=== PATIENT | female | born 1990 | race Caucasian/White ===

== ENCOUNTER 2016-08-09 19:02 | Emergency (ER) | payer OTHER ==
[2016-08-09] MEDS ORDERED: SODIUM CHLORIDE 0.9% 1,000 ML IV ONE (20:35)
[2016-08-09] MEDS ORDERED: ONDANSETRON 4 MG/2 ML VIAL IVP STA (21:20)
[2016-08-09] MEDS ORDERED: ONDANSETRON 4 MG/2 ML VIAL ONE (21:20)
== END 2016-08-09 22:05 | disposition home or self-care (01) ==
DX: K52.9 Noninfective gastroenteritis and colitis, unspecified (principal); M32.9 Systemic lupus erythematosus, unspecified

== ENCOUNTER 2016-10-19 07:07 | Emergency (ER) | payer OTHER | END 2016-10-19 09:50 | disposition home or self-care (01) | DX: R11.0 Nausea (principal); R42 Dizziness and giddiness; T58.8X1A Toxic effect of carbon monoxide from other source, accidental (unintentional), initial encounter; Y92.009 Unspecified place in unspecified non-institutional (private) residence as the place of occurrence of the external cause; M32.9 Systemic lupus erythematosus, unspecified ==

== ENCOUNTER 2017-10-20 21:26 | Emergency (ER) | payer OTHER ==
[2017-10-20] MEDS ORDERED: cephALEXin 250 MG CAPSULE PO STA (21:37)
[2017-10-20 21:38] VITALS: BP 127/79
--- NOTE | 2017-10-20 21:38 | ED Physician Documentation ---
History of Present Illness - Stated complaint Stated Complaint: POSS MASTITIS - History obtained from History obtained from: Patient - History of Present Illness Timing: How many days ago (10) Pain level max: 5 Pain level now: 4 - Additonal information Additional information: Patient is a 26-year-old female, has a 2-month-old at home. She states approximately 10 days ago the was "dislodged" from her left breast causing an abrasion. States in the past 2-3 days has had increasing pain. Tried warm compresses without relief. No fevers. Now has noted redness of the left breast. Pain is worse with breast-feeding and palpation Review of Systems Constitutional: denies: Fever, Chills Ears: denies: Ear pain Nose: denies: Rhinorrhea / runny nose, Congestion Throat: denies: Sore throat Respiratory: denies: Cough GI: denies: Vomiting : denies: Now EGA Skin: denies: Rash Musculoskeletal: denies: Neck pain, Back pain PD PAST MEDICAL HISTORY - Past Medical History Cardiovascular: Arrhythmia Respiratory: Asthma Endocrine/Autoimmune: Systemic lupus erythematosus - Past Surgical History Past Surgical History: No HEENT: Myringotomy (tubes), Tonsil/Adenoidectomy - Present Medications Home Medications: Ambulatory Orders Medication Instructions Recorded Confirmed Cephalexin [Keflex] 500 mg PO Q6H #40 capsule 10/20/17 - Allergies Allergies/Adverse Reactions: Allergies Allergy/AdvReac Type Severity Reaction Status Date / Time latex Allergy Intermediate Itching Verified 06/05/15 23:56 - Social History Does the pt smoke?: No Smoking Status: Never smoker Does the pt drink ETOH?: No Does the pt have substance abuse?: No - Immunizations Immunizations are current?: Yes - POLST Patient has POLST: No PD ED PE NORMAL - Vitals Vital signs reviewed: Yes - General General: Alert and oriented X 3, No acute distress - HEENT HEENT: Moist mucous membranes - Neck Neck: Supple, no meningeal sign - Cardiac Cardiac: RRR - Respiratory Respiratory: No respiratory distress, Clear bilaterally - Derm Derm: Warm and dry, Other (Left breast is mildly erythematous, especially on the inferior aspect of the breast. No palpable masses or abscesses. No unusual drainage. Exam was chaperoned by WILL Wahl) - Neuro Neuro: Alert and oriented X 3 Results - Vitals Vitals: Vital Signs - 24 hr 10/20/17 21:36 Temperature 36.3 C L Heart Rate 75 Respiratory 16 Rate Blood Pressure 127/79 O2 Saturation 99 Oxygen O2 Source Room air PD MEDICAL DECISION MAKING - ED course Complexity details: considered differential, d/w patient ED course: Patient appears to have a mastitis of the left breast. The exam of the right breast was normal. Will place on Keflex. We will have her follow-up with her doctor for further evaluation and care. Will continue breast-feeding. Patient counseled regarding signs and symptoms for which I believe and urgent re- evaluation would be necessary. Patient with good understanding of and agreement to plan and is comfortable going home at this time This document was made in part using voice recognition software. While efforts are made to proofread this document, sound alike and grammatical errors may occur. Departure - Departure Disposition: 01 Home, Self Care Clinical Impression: Mastitis Condition: Good Instructions: ED Breast Infec Follow-Up: TIANNA MENDEZ [Primary Care Provider] - Within 1 week (if not better) Prescriptions: Cephalexin [Keflex] 500 mg PO Q6H #40 capsule Comments: Take all antibiotics until gone. Return if you worsen. Discharge Date/Time: 10/20/17 21:54
== END 2017-10-20 21:54 | disposition home or self-care (01) ==
LOC: ED 21:26
DX: N61.0 Mastitis without abscess (principal); M32.9 Systemic lupus erythematosus, unspecified
CPT/HCPCS: 99283; A9270

== ENCOUNTER 2018-11-08 20:33 | Emergency (ER) | payer OTHER ==
--- NOTE | 2018-11-08 21:08 | ED Physician Documentation ---
PD HPI FEMALE - Stated complaint Stated Complaint: FEMALE - Chief complaint Chief Complaint: Abd Pain - History obtained from History obtained from: Patient - History of Present Illness Timing - onset: Today (this morning) Timing - duration: Days (1/2) Timing - details: Gradual onset, Still present, Waxing and waning Associated symptoms: Abdominal pain (left low abd), Pelvic pain, Vaginal discharge (mild thin discharge with some odor for few weeks.). No: Fever, Genital sore/lesion, Dysuria Contributing factors: Sexually active. No: , Exposed to STD Similar symptoms before: No diagnosis (had similar symptoms last month with mid- cycle and hurt for 1-2 days. Followed up with PMD and had outpt U/S which was normal. Presumption was perhaps ruptured cyst.) Review of Systems Constitutional: denies: Fever Nose: denies: Rhinorrhea / runny nose, Congestion Throat: denies: Sore throat Respiratory: denies: Cough GI: reports: Diarrhea (loose stool x 2-3 today). denies: Nausea, Vomiting : reports: Discharge. denies: Dysuria, Frequency, Vaginal bleeding Neurologic: denies: Near syncope PD PAST MEDICAL HISTORY - Past Medical History Cardiovascular: Arrhythmia Respiratory: Asthma Endocrine/Autoimmune: Systemic lupus erythematosus - Past Surgical History Past Surgical History: No HEENT: Myringotomy (tubes), Tonsil/Adenoidectomy - Present Medications Home Medications: Ambulatory Orders Medication Instructions Recorded Confirmed Etanercept [Enbrel] 25 mg IM 11/08/18 Metronidazole [Flagyl] 500 mg PO BID #20 tablet 11/08/18 Naproxen 375 mg PO BID #20 tablet 11/08/18 Ondansetron Odt [Zofran] 4 mg TL Q6H PRN #10 tablet 11/08/18 - Allergies Allergies/Adverse Reactions: Allergies Allergy/AdvReac Type Severity Reaction Status Date / Time latex Allergy Intermediate Itching Verified 11/08/18 20:56 - Social History Does the pt smoke?: No Smoking Status: Never smoker Does the pt drink ETOH?: No Does the pt have substance abuse?: No - Immunizations Immunizations are current?: Yes - POLST Patient has POLST: No PD ED PE NORMAL - Vitals Vital signs reviewed: Yes - General General: Alert and oriented X 3, No acute distress, Well developed/nourished - Abdomen Abdomen: Normal bowel sounds, Soft, Non distended, No organomegaly, Other (Some tenderness the left sided abdomen and left lower quadrant without any guarding or percussion tenderness.) - Female Female : Consumer Safety Officer present, Other (The external genitalia is normal. The vaginal vault shows a thin mucousy discharge with some odor to it and some mild cervicitis. There is no significant cervical motion tenderness.) - Rectal Rectal: Deferred - Back Back: No CVA TTP - Derm Derm: Normal color, Warm and dry Results - Vitals Vitals: Vital Signs - 24 hr 11/08/18 11/08/18 20:51 22:12 Temperature 36.8 C 36.5 C Heart Rate 97 93 Respiratory 16 16 Rate Blood Pressure 140/97 H 142/80 H O2 Saturation 99 100 Oxygen O2 Source Room air - Labs Labs: Microbiology 11/08/18 21:52 Wet Prep - Final Vaginal Laboratory Tests 11/08/18 11/08/18 21:07 21:07 Urine Color YELLOW Urine Clarity CLEAR Urine pH 6.0 Ur Specific [place] 1.025 1.025 Urine Protein NEGATIVE Urine Glucose (UA) NEGATIVE Urine Ketones NEGATIVE Urine Occult Blood NEGATIVE Urine Nitrite NEGATIVE Urine Bilirubin NEGATIVE Urine Urobilinogen 0.2 (NORMAL) Ur Leukocyte Esterase NEGATIVE Ur Microscopic Review NOT INDICATED Urine Culture Comments NOT INDICATED Urine HCG, Qual NEGATIVE PD MEDICAL DECISION MAKING - ED course Complexity details: considered differential (She had some loose to watery stool today a few times and so her left abdominal pain could be intestinal cramping. However she does have a discharge and on exam it appears consistent with bacterial vaginitis. She had had an outpatient ultrasound just to 3 weeks ago that was normal. It certainly is possible she may have developed a cyst in the meantime but I think would be less likely. At this point would treat for the bacterial vaginitis. If it were a diarrheal type cramp, that should improve just with time.), d/w patient Departure - Departure Disposition: 01 Home, Self Care Clinical Impression: Left sided abdominal pain, Bacterial vaginitis Condition: Stable Record reviewed to determine appropriate education?: Yes Instructions: ED Abdominal Pain Unkn Cause, ED Vaginosis Bacterial Follow-Up: TIANNA MENDEZ [Primary Care Provider] - Prescriptions: Metronidazole [Flagyl] 500 mg PO BID #20 tablet Naproxen 375 mg PO BID #20 tablet Ondansetron Odt [Zofran] 4 mg TL Q6H PRN #10 tablet PRN Reason: Nausea / Vomiting Comments: Your urine test appears normal. The vaginal exam does look consistent with a bacterial vaginitis. Cultures from the vaginal area will result in 2 to 3 days to look for other types of infections. We will call you if they are positive. Meanwhile we will treat with metronidazole twice daily for a week for the bacterial vaginosis. The vaginal infection may be causing your abdominal cramping or it may be related to midcycle pains from follicular fluid or such. This should be temporary for a day or 2. Your pain could also be intestinal associated with the loose stool in the dietary or such. This should also improve with some anti-inflammatories and time. At this point I think we can go with some frequent fluids and stay well-hydrated and use some anti-inflammatories such as naproxen twice daily for the next several days to week. Add ondansetron if needed for nausea. Add the hydrocodone tablets every 6 hours if needed for pain. Recheck if not improved over the next couple of days. Discharge Date/Time: 11/08/18 22:16
[2018-11-08 21:14] LABS: BILIRUBIN,URINE NEGATIVE (NEGATIVE); GLUCOSE, URINE (UA) NEGATIVE (NEGATIVE); KETONES,URINE (UA) NEGATIVE (NEGATIVE); LEUKOCYTE ESTERASE, URINE NEGATIVE (NEGATIVE); NITRITE,URINE NEGATIVE (NEGATIVE); OCCULT BLOOD,URINE NEGATIVE (NEGATIVE); PROTEIN,URINE NEGATIVE (NEGATIVE); UROBILINOGEN,URINE 0.2 (NORMAL) E.U./dL (NORMAL)
[2018-11-08 21:15] LABS: CLARITY,URINE CLEAR (CLEAR)
[2018-11-08 21:17] LABS: HCG UR QUAL NEGATIVE
[2018-11-08] MEDS ORDERED: ACETAMINOPHEN 325 MG TABLET PO STA (21:27)
[2018-11-08] MEDS ORDERED: NAPROXEN 250 MG TABLET PO STA (21:27)
[2018-11-08] MEDS ORDERED: ONDANSETRON ODT 4 MG TABLET TL STA (21:27)
[2018-11-08] MEDS ORDERED: ONDANSETRON ODT 4 MG Prepack 2 TL PRN (22:00)
[2018-11-08] MEDS ORDERED: metroNIDAZOLE 250 MG TABLET PO STA (22:00)
[2018-11-08] MEDS ORDERED: HYDROcod/ACET 5/325 Prepack 4 PO STA (22:00)
[2018-11-08 22:13] VITALS: BP 142/80
[2018-11-09 12:24] LABS: TRICHOMONAS VAGINALIS DNA NEGATIVE (NEGATIVE)
== END 2018-11-08 22:16 | disposition home or self-care (01) ==
LOC: ED 20:33
DX: N76.0 Acute vaginitis (principal); B96.89 Other specified bacterial agents as the cause of diseases classified elsewhere; N72 Inflammatory disease of cervix uteri; R10.32 Left lower quadrant pain; R19.7 Diarrhea, unspecified; M32.9 Systemic lupus erythematosus, unspecified
CPT/HCPCS: 81003; 81025; 87210; 87491; 87591; 87661; 99283; A9270; Q0162; 80053; 81001; 83690; 85025; 87086

== ENCOUNTER 2021-08-06 11:09 | Outpatient (CLI) | payer OTHER ==
[2021-08-06 17:11] LABS: BILIRUBIN,URINE NEGATIVE (NEGATIVE); GLUCOSE, URINE (UA) NEGATIVE (NEGATIVE); KETONES,URINE (UA) NEGATIVE (NEGATIVE); LEUKOCYTE ESTERASE, URINE NEGATIVE (NEGATIVE); NITRITE,URINE NEGATIVE (NEGATIVE); OCCULT BLOOD,URINE NEGATIVE (NEGATIVE); PROTEIN,URINE NEGATIVE (NEGATIVE); UROBILINOGEN,URINE 0.2 (NORMAL) E.U./dL (NORMAL)
[2021-08-06 17:12] LABS: CLARITY,URINE CLEAR (CLEAR)
[2021-08-06 19:59] LABS: BACTERIA,URINE Rare /HPF (None Seen); RBC,URINE None Seen /HPF (0-5); SQUAMOUS EPITHELIAL CELL,UR RARE Squamous (<= Few); WBC,URINE 0-3 /HPF (0-5)
[2021-08-07 00:57] LABS: CHLAMYDIA TRACHOMATIS DNA NEGATIVE (NEGATIVE); NEISSERIA GONORRHOEAE DNA NEGATIVE (NEGATIVE); TRICHOMONAS VAGINALIS DNA NEGATIVE (NEGATIVE)
[2021-08-07 02:59] LABS: BACTERIAL VAGINOSIS DNA NEGATIVE (NEGATIVE); CANDIDA GLABRATA DNA NEGATIVE (NEGATIVE); CANDIDA GROUP DNA POSITIVE (NEGATIVE); CANDIDA KRUSEI DNA NEGATIVE (NEGATIVE); TRICHOMONAS VAGINALIS DNA NEGATIVE (NEGATIVE)
== END 2021-08-06 23:59 | disposition home or self-care (01) ==
LOC: LAB 11:09
PROVIDERS: ATTEND Obstetrics & Gynecology
DX: R30.0 Dysuria (principal); Z11.3 Encounter for screening for infections with a predominantly sexual mode of transmission; N76.0 Acute vaginitis
CPT/HCPCS: 81001; 87086; 87491; 87591; 87661; 87801

== ENCOUNTER 2022-06-27 10:09 | Outpatient (CLI) | payer OTHER | END 2022-06-27 10:10 | disposition home or self-care (01) | LOC: LAB 10:09 | PROVIDERS: ATTEND Obstetrics & Gynecology | DX: Z01.812 Encounter for preprocedural laboratory examination (principal); N81.6 Rectocele; N81.10 Cystocele, unspecified | CPT/HCPCS: 36415; 86850; 86900; 86901 ==

== ENCOUNTER 2022-06-28 06:25 | Day surgery (SDC) | payer OTHER ==
[2022-06-28] MEDS ORDERED: LACTATED RINGERS 1,000 ML IV ONE (06:27)
--- NOTE | 2022-06-28 06:54 | ANESTHESIA ---
Pre-Anesthesia VS, & Labs - Diagnosis rectocele, cystocele - Procedure anterior/posterior repair, cystoscopy Vital Signs: Temp Pulse Resp BP Pulse Ox O2 Flow Rate 36.7 C 87 16 123/80 100 06/28/22 06:35 06/28/22 06:35 06/28/22 06:35 06/28/22 06:35 06/28/22 06:35 Height: 5 ft 7 in Weight (kg): 94 kg Body Mass Index: 32.4 BMI Classification: Obese - NPO >8 hours - Is Patient ?: Waiver signed - Lab Results Lab results reviewed: Yes Home Medications and Allergies Home Medications: Ambulatory Orders Acetaminophen [Tylenol] 650 mg PO Q6H PRN 06/22/22 Fexofenadine [Adrienne] 60 mg PO DAILY 06/22/22 Levothyroxine Sodium [Levothyroxine] 50 mcg PO DAILY 06/22/22 Liothyronine [Cytomel] 5 mcg PO QDAC 06/22/22 Rimegepant Sulfate [Nurtec Odt] 75 mg PO PRN PRN 06/22/22 SUMAtriptan [Imitrex] 25 mg PO ONCE PRN 06/22/22 Docusate Sodium 100Mg Capsule [Colace 100Mg Capsule] 100 mg PO DAILY PRN 06/28/22 Acetaminophen [Tylenol] 650 mg PO Q6H PRN 06/22/22 Fexofenadine [Adrienne] 60 mg PO DAILY 06/22/22 Levothyroxine Sodium [Levothyroxine] 50 mcg PO DAILY 06/22/22 Liothyronine [Cytomel] 5 mcg PO QDAC 06/22/22 Rimegepant Sulfate [Nurtec Odt] 75 mg PO PRN PRN 06/22/22 SUMAtriptan [Imitrex] 25 mg PO ONCE PRN 06/22/22 Docusate Sodium 100Mg Capsule [Colace 100Mg Capsule] 100 mg PO DAILY PRN 06/28/22 Allergies/Adverse Reactions: Allergies Allergy/AdvReac Type Severity Reaction Status Date / Time latex Allergy Intermediate Anaphylaxis Verified 06/22/22 15:42 adhesive tape Allergy Rash Verified 06/22/22 15:54 Anes History & Medical History - Anesthetic History Anesthesia Complications: reports: No previous complications, Slow wake-up Family history of Anesthesia Complications: Denies Family history of Malignant Hyperthermia: Denies - Medical History Cardiovascular: reports: Hypertension Pulmonary: reports: Asthma Gastrointestinal: reports: Other Urinary: reports: None Musculoskeletal: reports: Fibromyalgia, Other Endocrine/Autoimmune: reports: HyPOthyroidism, Systemic lupus erythematosus Skin: reports: Eczema Smoking Status: Never smoker Psychosocial: reports: Cannabis History of Cancer?: No - Surgical History General: reports: Cholecystectomy Eyes Ears Nose Throat (EENT): reports: Myringotomy (tubes), Tonsil/Adenoidectomy Exam General: Alert, Oriented x3, Cooperative Dental: Other (temporary cap on #8) Mouth Openin Fingerbreadth Neck Mobility: Normal Mallampati classification: II Thyromental Distance: 4-6 cm Respiratory: Lungs clear, Normal breath sounds, No respiratory distress Cardiovascular: Regular rate Neurological: Normal speech Mental/Cognitive Status: Alert/Oriented X3, Normal for patient Cognitive Status: Within normal limits Plan Anesthesia Type: General Consent for Procedure(s) Verified and Reviewed: Yes Code Status: Attempt Resuscitation ASA classification: 2-Mild systemic disease Is this case an emergency?: No
[2022-06-28] MEDS ORDERED: fentaNYL 100 MCG/2 ML VIAL ONE ×2 (07:02→09:18)
[2022-06-28] MEDS ORDERED: MIDAZOLAM 2 MG/2 ML VIAL ONE (07:02)
[2022-06-28] MEDS ORDERED: PROPOFOL 200 MG/20 ML VIAL IVP ONE (07:03)
[2022-06-28] MEDS ORDERED: LIDOCAINE-PF 2% 10 ML AMP SUBQ ONE (07:03)
[2022-06-28] MEDS ORDERED: ROCURONIUM 50 MG/5 ML VIAL ONE (07:07)
[2022-06-28] MEDS ORDERED: BUPIVACAINE 0.5% PF 30 ML VIAL ONE (07:11)
[2022-06-28] MEDS ORDERED: LIDOCAINE MPF 2%-EPI 1:200000 20 ML VIAL ONE (07:11)
[2022-06-28] MEDS ORDERED: ESTROGENS, CONJUGATED CREAM 30 GM TUBE ONE (07:12)
[2022-06-28] MEDS ORDERED: ONDANSETRON 4 MG/2 ML VIAL IVP PRN ×2 (07:24→11:38)
[2022-06-28] MEDS ORDERED: METOCLOPRAMIDE 10 MG/2 ML VIAL IVP PRN (07:24)
[2022-06-28] MEDS ORDERED: ATROPINE ABBOJECT 1 MG/10 ML SYRINGE IVP PRN (07:24)
[2022-06-28] MEDS ORDERED: fentaNYL 100 MCG/2 ML VIAL IVP PRN (07:24)
[2022-06-28] MEDS ORDERED: NALOXONE 0.4 MG/ML VIAL IVP PRN (07:24)
[2022-06-28] MEDS ORDERED: MORPHINE 2 MG/ML CARPUJECT IVP PRN (07:24)
[2022-06-28] MEDS ORDERED: ePHEDrine 50 MG/ML VIAL IVP PRN (07:24)
[2022-06-28] MEDS ORDERED: ONDANSETRON 4 MG/2 ML VIAL ONE ×2 (07:48→11:26)
[2022-06-28] MEDS ORDERED: DEXAMETHASONE 4 MG/ML VIAL ONE (07:48)
[2022-06-28] MEDS ORDERED: LACTATED RINGERS 1,000 ML IV SCH (08:00)
[2022-06-28] MEDS ORDERED: VASOPRESSIN 20 UNIT/ML VIAL ONE (08:16)
[2022-06-28] MEDS ORDERED: BUPIVACAINE 0.5% PF 30 ML VIAL SUBQ ONE (08:25)
[2022-06-28] MEDS ORDERED: VASOPRESSIN 20 UNIT/ML VIAL IVP ONE ×2 (08:25)
[2022-06-28] MEDS ORDERED: LIDOCAINE MPF 2%-EPI 1:200000 20 ML VIAL SUBQ ONE (08:25)
[2022-06-28] MEDS ORDERED: ACETAMINOPHEN 1,000 MG/100 ML 1,000 MG/100 ML BAG IV ONE (08:38)
[2022-06-28] MEDS ORDERED: KETOROLAC 30 MG/ML VIAL ONE (08:46)
[2022-06-28] MEDS ORDERED: MANNITOL 20% 500 ML IV ONE (08:56)
[2022-06-28] MEDS ORDERED: GLYCOPYRROLATE 1 MG/5 ML VIAL ONE (09:19)
[2022-06-28] MEDS ORDERED: NEOSTIGMINE 1 MG/1 ML 10 ML MDV ONE (09:19)
[2022-06-28] MEDS ORDERED: TRANEXAMIC ACID 1,000 MG/10 ML VIAL ONE (09:54)
[2022-06-28] MEDS ORDERED: HYDROmorphone 1 MG/ML CARPUJECT ONE ×2 (10:06→11:11)
[2022-06-28] MEDS ORDERED: LACTATED RINGERS 275 ML IV ONE (10:59)
[2022-06-28] MEDS ORDERED: ACETAMINOPHEN 500 MG TABLET PO PRN (11:09)
[2022-06-28] MEDS: HYDROmorphone 0.5 MG/0.5 ML SYRINGE IVP PRN ×4 (11:23→11:47)
--- NOTE | 2022-06-28 11:30 | OPERATIVE REPORT ---
Operative Report - General Procedure Date: 06/28/22 Planned Procedure: Anterior and posterior colporrhaphy with possible perineorrhaphy with cystoscopy Pre-Op Diagnosis: Female rectocele and cystocele Procedure Performed: Anterior and posterior colporrhaphy with perineorrhaphy with cystoscopy. Post Op Diagnosis: Female rectocele and cystocele, status post anterior posterior colporrhaphy - Procedure Note Primary Surgeon: Derrell Sims MD Secondary Surgeon: Natasha Muller MD Anesthesia Provider: Marvin Shore CRNA Anesthesia Technique: General ET tube Pathology: None IV Fluids (mL): 1,600 Estimated Blood Loss (mL): 400 Urine Output (mL): 400 Complications: None - Other Other Information/Narrative: Counseling Prior to the procedure the patient was counseled on the risks benefits and alternatives of vaginal repair. Risks included but were not limited to bleeding infection injury to the vagina bladder urethra or rectum. She is counseled on the risks of recurrence or failure which would require repeat surgery possibly for the same indication. She was counseled on the risk of urinary tract infection or urinary retention which may require prolonged catheterization. Was counseled on the risk of recurrence which approaches 20%. She is counseled on the risk of pain with intercourse or shortening of the vagina. Patient's questions were answered she expressed understanding of the risks and she consented to the procedure. Technique She was taken the operating room where timeout was performed firm the correct p atient and the correct procedure. The patient was then placed under general anesthesia. She is positioned on the operating table in the dorsolithotomy position with legs supported using stirrups. Pressure points were padded and a bear hugger was placed to maintain control of core body temperature. She was prepped and draped in sterile fashion. A Woods catheter was inserted. Exam under anesthesia was performed and consistent with her preoperative evaluation. Anterior colporrhaphy: A weighted speculum was inserted in the vagina. Dilute vasopressin was used for [place] dissection. Beginning on the anterior vagina extending from 1 cm below the posterior margin of the urethral meatus towards the vaginal apex. A scalpel was used to make a vertical incision along the midline. The edges of the incision were grasped and retracted using Allis clamps. The vaginal epithelium was then dissected off the underlying vaginal muscularis using Metzenbaum scissors until the entire extent of the anterior prolapse was dissected down to the underlying connective tissue. The anterior vaginal prolapse was then repaired using 0- Vicryl absorbable suture in interrupted fashion in the vaginal muscularis and adventitia to plicate in the midline without tension. 2 layers of plication were necessary. The vaginal epithelium was trimmed and reapproximated using 2-0 Vicryl absorbable suture in a running fashion. The weighted speculum was removed. Posterior colporrhaphy: Dilute vasopressin was once again used submucosally for hydrodissection and maintenance of hemostasis. Allis clamps were placed on the posterior hymen and brought together in the midline. A triangular incision was made medial to the Allis clamps extending to the midline of the perineal skin with the base of the triangle of the posterior hymen. Perineorrhaphy: A vertical incision was made through the perineal skin and vaginal mucosa. The skin was dissected away from the perineal body. The vaginal epithelium was open ed in the midline extending the incision superiorly to the level of the defect. The posterior vaginal epithelium was dissected off the fibromuscular from sidewall to sidewall. The posterior vaginal wall was plicated in the midline with interrupted transversely placed lateral sutures incorporating a generous purchase of the fiber muscularis beginning proximally and progressing toward the hymen. Perineorrhaphy: Bulbocavernosus muscles were plicated in the midline of the perineal body with an interrupted 0 Vicryl suture. The transverse perinei muscles were plicated. The skin was closed with a running 2-0 Vicryl absorbable suture. Preservation of 2 fingerbreadths of the genital hiatus was maintained. Hemostasis was ensured. A rectal exam was performed to ensure no sutures through the rectum. The vagina was then packed with Premarin soaked gauze. Cystoscopy: The Woods catheter balloon was deflated and removed from the vagina. The cystoscope was set up and using normal saline as a distention medium, the cystoscope was gently inserted through the urethral meatus. The bladder was checked for damage and none was noted. Both ureters were then seen giving brisk jets of urine. The bladder was then drained of fluid. Sponge lap and needle counts were reported correct by the nursing staff following the procedure. She was clean and dry legs were brought down out of lithotomy position simultaneously. Patient tolerated procedure well and was transferred to recovery room in stable condition. I appreciate the assistance of Dr. Muller during this procedure, and the assistance in retraction, visualization, dissection, and overall assistance during the case were instrumental to the patient's wellbeing.
[2022-06-28] MEDS ORDERED: ceFAZolin 2 GM in SODIUM CHLORIDE 0.9% MINIBAG 100 ML IV STA (11:41)
[2022-06-28] MEDS ORDERED: IBUPROFEN 600 MG TABLET PO SCH (12:00)
--- NOTE | 2022-06-28 12:24 | ANESTHESIA POST OP EVALUATION ---
Anesthesia Post Eval - Post Anesthesia Eval Vitals: Last Vital Signs Temp 37.2 C 06/28/22 12:15 Pulse 95 06/28/22 12:15 Resp 18 06/28/22 12:15 BP 121/75 06/28/22 12:15 Pulse Ox 100 06/28/22 12:15 O2 Flow Rate CV Function Including HR & BP: Stable Pain Control: Satisfactory Nausea & Vomiting: Negative Mental Status: Baseline Respiratory Status: Airway Patent Hydration Status: Satisfactory Anesthesia Complications: None
[2022-06-28] MEDS ORDERED: SODIUM CHLORIDE 0.9% MINIBAG 100 ML IV ONE (12:54)
[2022-06-28] MEDS: LACTATED RINGERS 1,000 ML IV SCH (13:07)
[2022-06-28] MEDS: HYDROcod/ACETAM 5/325 MG TABLET PO PRN ×2 (13:11→20:18)
[2022-06-28] MEDS ORDERED: CEFAZOLIN 2G/50ML 0.9% NS 2 GM/50 ML BAG IV ONE (14:00)
[2022-06-28] MEDS: IBUPROFEN 600 MG TABLET PO SCH ×2 (17:12→21:47)
[2022-06-28] MEDS: DOCUSATE SODIUM 100 MG CAPSULE PO SCH (20:18)
[2022-06-29] MEDS: LACTATED RINGERS 1,000 ML IV SCH ×2 (00:09→10:29)
[2022-06-29] MEDS: HYDROcod/ACETAM 5/325 MG TABLET PO PRN (00:09)
[2022-06-29] MEDS: IBUPROFEN 600 MG TABLET PO SCH ×2 (04:25→09:48)
[2022-06-29 05:34] LABS: BASOPHILS % (AUTO) 0.3 %; EOSINOPHILS % (AUTO) 0.1 %; HCT - HEMATOCRIT 25.4 % (37.0-47.0); HGB - HEMOGLOBIN 7.6 g/dL (12.0-16.0); LYMPHOCYTES # (AUTO) 2.4 10^3/uL (1.5-3.5); LYMPHOCYTES % (AUTO) 33.3 %; MEAN CORPUSCULAR HEMOGLOBIN 23.2 pg (27.0-31.0); MEAN CORPUSCULAR HGB CONC 29.9 g/dL (32.0-36.0); MEAN CORPUSCULAR VOLUME 77.4 fL (81.0-99.0); MEAN PLATELET VOLUME 11.2 fL (7.9-10.8); MONOCYTES # (AUTO) 0.4 10^3/uL (0.0-1.0); MONOCYTES % (AUTO) 5.5 %; NEUTROPHILS # (AUTO) 4.4 10^3/uL (1.5-6.6); NEUTROPHILS % (AUTO) 60.4 %; PLT - PLATELET COUNT 213 10^3/uL (130-450); RED BLOOD COUNT 3.28 10^6/uL (4.20-5.40); RED CELL DISTRIBUTION WIDTH 13.5 % (12.0-15.0); WHITE BLOOD COUNT 7.2 x10^3/uL (4.8-10.8)
--- NOTE | 2022-06-29 07:50 | DISCHARGE SUMMARY ---
"Discharge Summary Admit Date: 06/28/22 Discharge Date: 06/29/22 Discharging Provider: Derrell Sims MD Code Status: Attempt Resuscitation Condition at Discharge: Critical Discharge Disposition: 01 Home, Self Care - DIAGNOSES Admission Diagnoses: Cystocele and rectocele Discharge Diagnoses with Status of Each Condition: Cystocele and rectocele: Status Post anterior posterior colporrhaphy and perineorrhaphy. - HPI History of Present Illness: Subjective: Patient is a 31-year-old female postoperative day 1 from a planned anterior and posterior colporrhaphy with perineorrhaphy. Pain is well controlled. Amb ulating without difficulty. No calf pain or tenderness. No shortness of breath or chest pain. Voiding without difficulty after Woods was removed Overnight events: No acute events Physical exam: Constitutional: alert, oriented, no acute distress Cardiovascular: Regular rate and rhythm. No murmurs, rubs, gallops. Respiratory: No respiratory distress. Clear to auscultation bilaterally. Extremities: No swelling or tenderness. No cords. Distal pulses intact. Psych: affect and mood appropriate, normal interaction, good eye contact. - CONSULTS | PROCEDURES Procedures: Anterior and posterior polporrhaphy with perineorraphy and cystoscopy - HOSPITAL COURSE Hospital Course: Patient is a 31-year-old female admitted for planned anterior and posterior colporrhaphy with perineorrhaphy. Surgery was uncomplicated and postoperative rectal exam and cystoscopy were normal. She had Woods catheter and vaginal pack ing removed and was able to void spontaneously. She was discharged on postoperative day 1. - ALLERGIES Allergies/Adverse Reactions: Allergies Allergy/AdvReac Type Severity Reaction Status Date / Time latex Allergy Intermediate Anaphylaxis Verified 06/22/22 15:42 adhesive tape Allergy Rash Verified 06/22/22 15:54 - MEDICATIONS Home Medications: Ambulatory Orders Medication Instructions Recorded Confirmed Acetaminophen [Tylenol] 650 mg PO Q6H PRN 06/22/22 06/28/22 Fexofenadine [Adrienne] 60 mg PO DAILY 06/22/22 06/28/22 Levothyroxine Sodium 50 mcg PO DAILY 06/22/22 06/28/22 [Levothyroxine] Liothyronine [Cytomel] 5 mcg PO QDAC 06/22/22 06/28/22 Rimegepant Sulfate [Nurtec Odt] 75 mg PO PRN PRN 06/22/22 06/28/22 SUMAtriptan [Imitrex] 25 mg PO ONCE PRN 06/22/22 06/28/22 Docusate Sodium 100Mg Capsule 100 mg PO DAILY PRN 06/28/22 06/28/22 [Colace 100Mg Capsule] oxyCODONE [Roxicodone] 2.5 - 5 mg PO Q4H PRN #10 tablet 06/29/22 - LABS Result Diagrams: 06/29/22 05:12 - FOLLOW UP Follow Up: With Derrell Sims MD at [facility] in 1 to 2 weeks - TIME SPENT Time Spent in Discharge (Minutes): 25"
[2022-06-29] MEDS ORDERED: LACTATED RINGERS 500 ML IV ONE (09:29)
[2022-06-29] MEDS: DOCUSATE SODIUM 100 MG CAPSULE PO SCH (09:48)
[2022-06-29] MEDS ORDERED: ENOXAPARIN 40 MG/0.4 ML SYRINGE SUBQ SCH (12:00)
[2022-06-29 12:17] VITALS: BP 118/77
== END 2022-06-29 12:00 | disposition home or self-care (01) ==
LOC: SDS 06:25 → MS2 12:13 → SDS 06-29 12:00
PROVIDERS: ATTEND Obstetrics & Gynecology
DX: N81.6 Rectocele (principal); N81.10 Cystocele, unspecified; N39.3 Stress incontinence (female) (male); J45.909 Unspecified asthma, uncomplicated; E66.9 Obesity, unspecified; Z68.32 Body mass index [BMI] 32.0-32.9, adult
CPT/HCPCS: 36415; 57260; 85025; A9270; J0131; J0690; J1170; J7120

== ENCOUNTER 2022-07-05 16:22 | Outpatient (CLI) | payer OTHER ==
[2022-07-05 20:39] LABS: BASOPHILS % (AUTO) 0.6 %; EOSINOPHILS # (AUTO) 0.2 10^3/uL (0.0-0.7); EOSINOPHILS % (AUTO) 2.8 %; HCT - HEMATOCRIT 26.3 % (37.0-47.0); HGB - HEMOGLOBIN 7.8 g/dL (12.0-16.0); LYMPHOCYTES % (AUTO) 36.7 %; MEAN CORPUSCULAR HEMOGLOBIN 23.6 pg (27.0-31.0); MEAN CORPUSCULAR HGB CONC 29.7 g/dL (32.0-36.0); MEAN CORPUSCULAR VOLUME 79.7 fL (81.0-99.0); MEAN PLATELET VOLUME 11.2 fL (7.9-10.8); MONOCYTES # (AUTO) 0.4 10^3/uL (0.0-1.0); MONOCYTES % (AUTO) 7.4 %; NEUTROPHILS # (AUTO) 2.8 10^3/uL (1.5-6.6); NEUTROPHILS % (AUTO) 52.3 %; PLT - PLATELET COUNT 293 10^3/uL (130-450); RED CELL DISTRIBUTION WIDTH 14.1 % (12.0-15.0); WHITE BLOOD COUNT 5.4 x10^3/uL (4.8-10.8)
== END 2022-07-05 16:23 | disposition home or self-care (01) ==
LOC: LAB.N 16:22
PROVIDERS: ATTEND Obstetrics & Gynecology
DX: D50.0 Iron deficiency anemia secondary to blood loss (chronic) (principal)
CPT/HCPCS: 36415; 85025

== ENCOUNTER 2022-07-11 09:16 | Outpatient (CLI) | payer OTHER ==
[2022-07-11 09:23] LABS: HCT - HEMATOCRIT 30.2 % (37.0-47.0); HGB - HEMOGLOBIN 8.7 g/dL (12.0-16.0); MEAN CORPUSCULAR HEMOGLOBIN 23.1 pg (27.0-31.0); MEAN CORPUSCULAR HGB CONC 28.8 g/dL (32.0-36.0); MEAN CORPUSCULAR VOLUME 80.1 fL (81.0-99.0); MEAN PLATELET VOLUME 9.8 fL (7.9-10.8); RED BLOOD COUNT 3.77 10^6/uL (4.20-5.40); RED CELL DISTRIBUTION WIDTH 16.7 % (12.0-15.0); WHITE BLOOD COUNT 5.4 x10^3/uL (4.8-10.8)
== END 2022-07-11 09:17 | disposition home or self-care (01) ==
LOC: LAB 09:16
PROVIDERS: ATTEND Obstetrics & Gynecology
DX: D50.0 Iron deficiency anemia secondary to blood loss (chronic) (principal)
CPT/HCPCS: 36415; 82728; 85027

== ENCOUNTER 2022-07-23 18:16 | Emergency (ER) | payer OTHER ==
--- NOTE | 2022-07-23 18:48 | ED Physician Documentation ---
PD HPI DYSPNEA - Stated complaint Stated Complaint: C+,SOA,WHEEZING - Chief complaint Chief Complaint: Resp - History obtained from History obtained from: Patient - History of Present Illness Worsened by: Exertion, Coughing Associated symptoms: Cough, Wheezing - Additional information Additional information: This is a 31-year-old female with past medical history of asthma on albuterol and Flovent who presents with cough and shortness of breath. The patient states that she tested positive for COVID 2 days ago, symptoms started the day prior to that. She has had mostly dry cough that seemed to worsen today, not productive. She had a fever initially but none since. She has some fatigue and mild body aches but no other symptoms including sore throat, ear pain, chest pain, abdominal pain, nausea vomiting or diarrhea, urinary symptoms. She has not attempted any medication and has not even tried her albuterol or Flovent as her symptoms had been okay up until last couple hours when she had increasing dry cough and shortness of breath. 2 of her children at home are positive with same symptoms. Review of Systems Constitutional: reports: Reviewed and negative (Other systems reviewed and are negative except as noted per HPI) PD PAST MEDICAL HISTORY - Past Medical History Past Medical History: Yes Cardiovascular: Hypertension Respiratory: Asthma Endocrine/Autoimmune: HyPOthyroidism, Systemic lupus erythematosus GI: Other : None HEENT: Chronic vision loss, Chronic sinusitis Psych: Depression, Claustrophobia Musculoskeletal: Fibromyalgia, Other Derm: Eczema - Past Surgical History Past Surgical History: No General: Cholecystectomy HEENT: Myringotomy (tubes), Tonsil/Adenoidectomy - Present Medications Home Medications: Ambulatory Orders Medication Instructions Recorded Confirmed Acetaminophen [Tylenol] 650 mg PO Q6H PRN 06/22/22 06/28/22 Fexofenadine [Adrienne] 60 mg PO DAILY 06/22/22 06/28/22 Levothyroxine Sodium 50 mcg PO DAILY 06/22/22 06/28/22 [Levothyroxine] Liothyronine [Cytomel] 5 mcg PO QDAC 06/22/22 06/28/22 Rimegepant Sulfate [Nurtec Odt] 75 mg PO PRN PRN 06/22/22 06/28/22 SUMAtriptan [Imitrex] 25 mg PO ONCE PRN 06/22/22 06/28/22 Docusate Sodium 100Mg Capsule 100 mg PO DAILY PRN 06/28/22 06/28/22 [Colace 100Mg Capsule] oxyCODONE [Roxicodone] 2.5 - 5 mg PO Q4H PRN #10 tablet 06/29/22 Benzonatate [Tessalon] 200 mg PO TID PRN #30 cap 07/23/22 - Allergies Allergies/Adverse Reactions: Allergies Allergy/AdvReac Type Severity Reaction Status Date / Time latex Allergy Intermediate Anaphylaxis Verified 07/23/22 18:26 adhesive tape Allergy Rash Verified 07/23/22 18:26 - Social History Does the pt smoke?: No Smoking Status: Never smoker Does the pt drink ETOH?: No Does the pt have substance abuse?: No - Immunizations Immunizations are current?: Yes - POLST Patient has POLST: No PD ED PE NORMAL - Vitals Vital signs reviewed: Yes - General General: Alert and oriented X 3, No acute distress, Well developed/nourished - HEENT HEENT: Atraumatic, PERRL, EOMI, Ears normal, Moist mucous membranes, Pharynx benign, Dentition benign - Neck Neck: Supple, no meningeal sign, No JVD - Cardiac Cardiac: RRR, No murmur, No gallop, No rub, Strong equal pulses - Respiratory Respiratory: No respiratory distress, Clear bilaterally - Abdomen Abdomen: Normal bowel sounds, Soft, Non tender, Non distended - Derm Derm: Normal color, Warm and dry, No rash - Neuro Neuro: Alert and oriented X 3 Eye Opening: Spontaneous Motor: Obeys Commands Verbal: Oriented GCS Score: 15 - Psych Psych: Normal mood, Normal affect Results - Vitals Vitals: Vital Signs - 24 hr 07/23/22 07/23/22 07/23/22 18:26 18:39 18:44 Temperature 36.6 C Heart Rate 108 H 90 91 Respiratory 24 24 18 Rate Blood Pressure 133/95 H 144/92 H 144/92 H O2 Saturation 100 100 99 07/23/22 19:46 Temperature 37.0 C Heart Rate 88 Respiratory 19 Rate Blood Pressure 123/75 O2 Saturation 100 Oxygen O2 Source Room air - Labs Labs: Laboratory Tests 07/23/22 07/23/22 19:17 19:17 WBC 3.4 L RBC 4.24 Hgb 10.1 L Hct 34.4 L MCV 81.1 MCH 23.8 L MCHC 29.4 L RDW 19.2 H Plt Count 188 MPV 11.2 H Neut # (Auto) 1.5 Lymph # (Auto) 1.6 [place] # (Auto) 0.3 Eos # (Auto) 0.0 Baso # (Auto) 0.0 Absolute Nucleated RBC 0.00 Nucleated RBC % 0.0 Sodium 138 Potassium 3.9 Chloride 106 Carbon Dioxide 23 Anion Gap 9.0 BUN 11 Creatinine 0.5 Estimated GFR (MDRD) 145 Glucose 99 Calcium 9.0 PD Medical Decision Making - ED course Complexity details: reviewed results, re-evaluated patient, d/w patient ED course: This is a 31-year-old female has a history of asthma as well as hypothyroidism and lupus who presents with known COVID infection with increasing shortness of breath. The patient is well-appearing on physical exam and no acute distress, she is oxygenating well on room air, 100%. Her lung sounds are clear. I did obtain x-ray which shows no signs of pneumonia. Her labs are all reassuring. I have low suspicion for PE at this time as patient has stable vital signs, and only recently diagnosed with COVID. They recommended supportive measures including using her albuterol that she has at home as well as her Flovent, Tessalon Perles, hydration. I discussed return precautions of new or worsening symptoms. The patient was discharged home in stable condition. Departure - Departure Disposition: 01 Home, Self Care Clinical Impression: COVID-19 Condition: Good Instructions: ED Viral Syndrome Prescriptions: Benzonatate [Tessalon] 200 mg PO TID PRN #30 cap PRN Reason: Cough Comments: You presented w/ symptoms related to your covid Infection. Your chest x-ray was clear and your labs are stable. Your anemia has improved from your prior ev aluation a few weeks ago. Please continue to take your iron supplementation. You may also use your Albuterol inhaler and Flovent as needed. I have prescribed you some cough medication that you may use in addition to [id number] cough medication. Please get plenty of rest stay well- hydrated. Symptoms should improve in the next 5 to 7 days. If you feel like you are getting worse, having increasing difficulty breathing or other new concerns, please return to the ER. Discharge Date/Time: 07/23/22 20:38
--- NOTE | 2022-07-23 19:10 | XRAY Report ---
PROCEDURE: Chest 1 View X-Ray INDICATIONS: covid, sob TECHNIQUE: One view of the chest was acquired. COMPARISON: None. FINDINGS: Surgical changes and devices: None. Lungs and pleura: No pleural effusions or pneumothorax. Lungs are clear. Mediastinum: Mediastinal contours appear normal. Heart size is normal. Bones and chest wall: No suspicious bony lesions. Overlying soft tissues appear unremarkable. IMPRESSION: Chest without acute cardiopulmonary abnormalities or focal airspace disease. Reviewed by: Refugio Seth MD on 07/23/2022 7:09 PM [facility] Approved by: Refugio Seth MD on 07/23/2022 7:09 PM [facility] Station ID: [id number]
[2022-07-23 19:22] LABS: BASOPHILS % (AUTO) 0.6 %; EOSINOPHILS % (AUTO) 1.2 %; HCT - HEMATOCRIT 34.4 % (37.0-47.0); HGB - HEMOGLOBIN 10.1 g/dL (12.0-16.0); LYMPHOCYTES # (AUTO) 1.6 10^3/uL (1.5-3.5); LYMPHOCYTES % (AUTO) 45.6 %; MEAN CORPUSCULAR HEMOGLOBIN 23.8 pg (27.0-31.0); MEAN CORPUSCULAR HGB CONC 29.4 g/dL (32.0-36.0); MEAN CORPUSCULAR VOLUME 81.1 fL (81.0-99.0); MEAN PLATELET VOLUME 11.2 fL (7.9-10.8); MONOCYTES # (AUTO) 0.3 10^3/uL (0.0-1.0); MONOCYTES % (AUTO) 9.3 %; NEUTROPHILS # (AUTO) 1.5 10^3/uL (1.5-6.6); NEUTROPHILS % (AUTO) 43.3 %; PLT - PLATELET COUNT 188 10^3/uL (130-450); RED BLOOD COUNT 4.24 10^6/uL (4.20-5.40); RED CELL DISTRIBUTION WIDTH 19.2 % (12.0-15.0); WHITE BLOOD COUNT 3.4 x10^3/uL (4.8-10.8)
[2022-07-23 19:32] LABS: CREATININE 0.5 mg/dL (0.4-1.0); POTASSIUM 3.9 mmol/L (3.5-5.0)
[2022-07-23 19:47] VITALS: BP 123/75
== END 2022-07-23 20:38 | disposition home or self-care (01) ==
LOC: ED 18:16
DX: U07.1 COVID-19 (principal); I10 Essential (primary) hypertension
CPT/HCPCS: 36415; 80048; 85025; 99283; 99284